=== PATIENT | female | born 1960 | race African-American/Black ===

== ENCOUNTER 2019-05-24 13:21 | Emergency (ER) | payer MEDICAID ==
[~2019-05-24] VITALS: Ht 172.7 cm; Wt 96.0 kg
[2019-05-24] MEDS ORDERED: IBUPROFEN 600MG TABLET PO ONE (15:15)
[2019-05-24 15:31] VITALS: BP 147/77
== END 2019-05-24 15:40 | disposition home or self-care (01) ==
LOC: ER 13:21
DX: M79.10 Myalgia, unspecified site (principal); M25.511 Pain in right shoulder; V49.88XA Car occupant (driver) (passenger) injured in other specified transport accidents, initial encounter; Y93.89 Activity, other specified; Y92.89 Other specified places as the place of occurrence of the external cause; Y99.8 Other external cause status
CPT/HCPCS: 99282

== ENCOUNTER 2022-10-19 19:27 | Emergency (ER) | payer MEDICAID, OTHER ==
[~2022-10-19] VITALS: Ht 172.7 cm; Wt 119.3 kg
[2022-10-19 19:54] VITALS: BP 163/84; O2SAT 98
[2022-10-19] MEDS ORDERED: TETANUS, DIPHTHERIA, PERTUSSIS VAC/PF 0.5ML (>10YR OLD) IM ONE (22:30)
[2022-10-19] MEDS ORDERED: ACETAMINOPHEN 325MG TABLET PO ONE (22:30)
[2022-10-19] MEDS ORDERED: AMOX1TAB16 PO (22:33)
[2022-10-19] MEDS ORDERED: ACET-2708 PO (22:33)
[2022-10-19] MEDS ORDERED: AMOXICILLIN/POTASSIUM CLAVULANATE 875/125MG TAB PO NR (22:45)
[2022-10-19 23:17] VITALS: PULSE 88; RESP 16; TEMP 98.4
== END 2022-10-19 23:15 | disposition home or self-care (01) ==
LOC: ER 19:27
DX: S81.851A Open bite, right lower leg, initial encounter (principal); X58.XXXA Exposure to other specified factors, initial encounter; Y93.89 Activity, other specified; Y92.89 Other specified places as the place of occurrence of the external cause; Y99.8 Other external cause status
CPT/HCPCS: 90471; 90715; 99283